=== PATIENT | male | born 1955 | race Caucasian/White ===

== ENCOUNTER 2020-09-14 18:37 | Inpatient (IN) ==
[2020-09-14 20:29] LABS: Basophils % 0.2 % (0.0-0.8); Eosinophils % 0.1 % (0.00-10.9); Hematocrit 46.2 VOL% (42.0-52.0); Hemoglobin 15.6 GM/DL (14.0-18.0); Immature Granulocytes % 0.4 %; Immature Granulocytes Absolute 0.06 #; Lymphocytes # 1.3 10*3/uL (1.4-4.0); Lymphocytes % 9.3 % (21.2-54.2); Mean Corpuscular HGB Conc 33.8 GM/DL (32-36); Mean Corpuscular Volume 101.3 FL (87-102); Mean Platelet Volume 9.2 FL (9.6-12.0); Monocytes % 7.1 % (1.7-12.7); Neutrophils % 82.9 % (38.7-73.9); Platelet Count 242 T/CUMM (130-400); Red Blood Count 4.56 MC/CUMM (3.8-5.5); Red Cell Distribution Width 12.4 % (9.3-17.3); White Blood Count 13.9 T/CUMM (4-12)
[2020-09-14 20:33] LABS: Bilirubin,Urine Negative (Negative); Blood, Urine Negative (Negative); Glucose,Urine (UA) Negative (Negative); Ketones,Urine 20 mg/dL (Negative); Mucus,Urine Few /LPF (Occasional); Nitrite,Urine Negative (Negative); Protein,Urine Negative; RBC,Urine 1 /HPF (0-4); Urine Appearance CLEAR (Clear); Urine Color Yellow (Yellow); Urine Specific Gravity 1.018 (1.001-1.035); Urine Urobilinogen < 2.0 EU/DL (0.2-1.0); WBC,Urine 3 /HPF (0-6)
[2020-09-14 20:55] LABS: Albumin 4.2 G/DL (3.4-5.0); Calcium 9.1 MG/DL (8.5-10.1); Osmolality,Calculated 269.1 MOS/KG (273-304); Total Protein 8.1 G/DL (6.4-8.3)
[2020-09-14] MEDS ORDERED: ONDANSETRON 4 MG/2 ML VIAL IV STA (21:22)
[2020-09-14] MEDS ORDERED: MORPHINE 4 MG/1 ML VIAL IV STA (21:23)
[2020-09-14] MEDS ORDERED: MORPHINE 4 MG/1 ML VIAL ONE (21:24)
[2020-09-14] MEDS ORDERED: HYDROmorphone 2 MG/1 ML VIAL IV STA (22:48)
[2020-09-14] MEDS ORDERED: ONDANSETRON 4 MG/2 ML VIAL IV PRN (23:13)
[2020-09-14] MEDS ORDERED: HYDROmorphone 2 MG/1 ML VIAL IV PRN (23:13)
[2020-09-14] MEDS ORDERED: ACETAMINOPHEN 325 MG TABLET PO PRN (23:13)
[2020-09-14 23:14] LABS: Risk Ratio 2.76; VLDL CHOLESTEROL 14.2 MG/DL
[2020-09-14] MEDS ORDERED: ALBUTEROL 2.5 MG/3 ML NEB RESP TX PRN (23:15)
[2020-09-14] MEDS ORDERED: LORazepam 2 MG/1 ML VIAL IV PRN (23:45)
[2020-09-15] MEDS: SODIUM CHLORIDE 0.9% 1,000 ML IV SCH ×3 (01:05→23:30)
[2020-09-15] MEDS: BUDESONIDE/FORMOTEROL 160-4.5 INHALER 6 GM INH SCH ×3 (01:14→21:12)
[2020-09-15] MEDS: ENOXAPARIN 40 MG/0.4 ML SYRINGE SUBCUT SCH ×2 (01:15→07:59)
[2020-09-15 06:25] LABS: Basophils % 0.3 % (0.0-0.8); Eosinophils # 0.1 10*3/uL (0.0-0.87); Eosinophils % 0.5 % (0.00-10.9); Hematocrit 40.8 VOL% (42.0-52.0); Hemoglobin 13.7 GM/DL (14.0-18.0); Immature Granulocytes % 0.5 %; Immature Granulocytes Absolute 0.05 #; Lymphocytes # 1.7 10*3/uL (1.4-4.0); Lymphocytes % 16.5 % (21.2-54.2); Mean Corpuscular HGB Conc 33.6 GM/DL (32-36); Mean Corpuscular Volume 100.7 FL (87-102); Mean Platelet Volume 9.8 FL (9.6-12.0); Neutrophils % 73.2 % (38.7-73.9); Platelet Count 228 T/CUMM (130-400); Red Blood Count 4.05 MC/CUMM (3.8-5.5); Red Cell Distribution Width 12.3 % (9.3-17.3); White Blood Count 10.1 T/CUMM (4-12)
[2020-09-15 06:44] LABS: Albumin 3.3 G/DL (3.4-5.0); Bilirubin,Total 1.4 MG/DL (0.2-1.0); Calcium 8.2 MG/DL (8.5-10.1); Osmolality,Calculated 280.1 MOS/KG (273-304); Total Protein 6.5 G/DL (6.4-8.3)
[2020-09-15] MEDS ORDERED: SENNA 8.6 MG TABLET PO PRN (08:13)
[2020-09-15] MEDS: ATORVASTATIN 40 MG TABLET PO SCH (08:29)
[2020-09-15] MEDS: PANTOPRAZOLE 40 MG VIAL IV SCH (08:30)
[2020-09-15] MEDS: ASPIRIN EC 325 MG TABLET PO SCH (08:30)
[2020-09-16] MEDS: SODIUM CHLORIDE 0.9% 1,000 ML IV SCH ×2 (00:50→08:55)
[2020-09-16 05:43] LABS: Basophils % 0.4 % (0.0-0.8); Eosinophils # 0.2 10*3/uL (0.0-0.87); Eosinophils % 2.1 % (0.00-10.9); Hemoglobin 13.2 GM/DL (14.0-18.0); Immature Granulocytes % 0.3 %; Immature Granulocytes Absolute 0.03 #; Lymphocytes # 1.6 10*3/uL (1.4-4.0); Lymphocytes % 16.5 % (21.2-54.2); Mean Corpuscular HGB Conc 33.8 GM/DL (32-36); Mean Platelet Volume 9.7 FL (9.6-12.0); Monocytes % 10.3 % (1.7-12.7); Neutrophils % 70.4 % (38.7-73.9); Platelet Count 183 T/CUMM (130-400); Red Cell Distribution Width 11.9 % (9.3-17.3); White Blood Count 9.5 T/CUMM (4-12)
[2020-09-16 06:05] LABS: Albumin 3.1 G/DL (3.4-5.0); Bilirubin,Total 1.2 MG/DL (0.2-1.0); Calcium 8.1 MG/DL (8.5-10.1); Osmolality,Calculated 271.7 MOS/KG (273-304); Osmolality,Calculated 275.4 MOS/KG (273-304); Total Protein 6.3 G/DL (6.4-8.3)
[2020-09-16 07:56] VITALS: BP 122/68
[2020-09-16] MEDS: ASPIRIN EC 325 MG TABLET PO SCH (08:42)
[2020-09-16] MEDS: ENOXAPARIN 40 MG/0.4 ML SYRINGE SUBCUT SCH (08:42)
[2020-09-16] MEDS: ATORVASTATIN 40 MG TABLET PO SCH (08:42)
[2020-09-16] MEDS: BUDESONIDE/FORMOTEROL 160-4.5 INHALER 6 GM INH SCH (08:45)
[2020-09-16] MEDS: PANTOPRAZOLE 40 MG VIAL IV SCH (08:46)
== END 2020-09-16 10:50 | disposition home or self-care (01) | DRG 440 ==
LOC: N.ED 18:37 → N.EDINP 22:37 → N.5E 23:57
PROVIDERS: ADMIT Internal Medicine; ATTEND Internal Medicine

== ENCOUNTER 2022-06-01 17:50 | Inpatient (IN) ==
[2022-06-01 18:18] LABS: Basophils # 0.1 10*3/uL (0.0-0.2); Basophils % 0.6 % (0.0-0.8); Eosinophils # 0.1 10*3/uL (0.0-0.87); Eosinophils % 1.8 % (0.00-10.9); Hemoglobin 15.2 GM/DL (14.0-18.0); Immature Granulocytes % 0.1 %; Immature Granulocytes Absolute 0.01 #; Lymphocytes # 1.5 10*3/uL (1.4-4.0); Lymphocytes % 18.8 % (21.2-54.2); Mean Corpuscular HGB Conc 34.5 GM/DL (32-36); Mean Corpuscular Volume 97.6 FL (87-102); Mean Platelet Volume 9.5 FL (9.6-12.0); Monocytes # 0.7 10*3/uL (0.11-0.8); Monocytes % 8.4 % (1.7-12.7); Neutrophils % 70.3 % (38.7-73.9); Platelet Count 243 T/CUMM (130-400); Red Blood Count 4.51 MC/CUMM (3.8-5.5); Red Cell Distribution Width 12.8 % (9.3-17.3)
[2022-06-01 18:52] LABS: Calcium 9.4 MG/DL (8.5-10.1); Potassium 3.5 MMOL/L (3.5-5.1); Total Protein 7.3 G/DL (6.4-8.2)
[2022-06-01] MEDS ORDERED: ONDANSETRON 4 MG/2 ML VIAL IV ONE (21:29)
[2022-06-01] MEDS ORDERED: SODIUM CHLORIDE 0.9% 1,000 ML IV STA (21:29)
[2022-06-01] MEDS ORDERED: MORPHINE 2 MG/1 ML SYRINGE IV STA (21:29)
[2022-06-01] MEDS ORDERED: ONDANSETRON 4 MG/2 ML VIAL IV PRN (22:09)
[2022-06-01] MEDS ORDERED: DEXTROSE 10% 250 ML BAG IV PRN (22:09)
[2022-06-01] MEDS ORDERED: diphenhydrAMINE CAP 25 MG CAPSULE PO PRN (22:09)
[2022-06-01] MEDS ORDERED: guaiFENesin/DM ER 600-30 MG TABLET PO PRN (22:09)
[2022-06-01] MEDS ORDERED: GLUCAGON 1 MG VIAL IM PRN (22:09)
[2022-06-01] MEDS ORDERED: NICOTINE 21 MG/24 HR PATCH TRANSDERM PRN (22:09)
[2022-06-01] MEDS ORDERED: hydrALAZINE 20 MG/1 ML VIAL IV PRN (22:09)
[2022-06-01] MEDS ORDERED: ZALEPLON 5 MG CAPSULE PO PRN (22:09)
[2022-06-01] MEDS ORDERED: DEXTROSE 5% NACL 0.9% 1,000 ML IV SCH (22:30)
[2022-06-01] MEDS ORDERED: ATORVASTATIN 40 MG TABLET PO SCH (23:06)
[2022-06-01] MEDS ORDERED: MORPHINE 2 MG/1 ML SYRINGE IV ONE (23:06)
[2022-06-02] MEDS: MORPHINE 2 MG/1 ML SYRINGE IV PRN ×2 (03:29→10:09)
[2022-06-02 06:28] LABS: Basophils % 0.4 % (0.0-0.8); Eosinophils # 0.2 10*3/uL (0.0-0.87); Eosinophils % 2.8 % (0.00-10.9); Hematocrit 44.4 VOL% (42.0-52.0); Hemoglobin 14.7 GM/DL (14.0-18.0); Immature Granulocytes % 0.5 %; Immature Granulocytes Absolute 0.04 #; Lymphocytes # 1.3 10*3/uL (1.4-4.0); Lymphocytes % 16.9 % (21.2-54.2); Mean Corpuscular HGB Conc 33.1 GM/DL (32-36); Mean Platelet Volume 9.8 FL (9.6-12.0); Monocytes # 0.8 10*3/uL (0.11-0.8); Monocytes % 10.1 % (1.7-12.7); Neutrophils % 69.3 % (38.7-73.9); Platelet Count 226 T/CUMM (130-400); Red Blood Count 4.44 MC/CUMM (3.8-5.5); Red Cell Distribution Width 12.9 % (9.3-17.3); White Blood Count 7.6 T/CUMM (4-12)
[2022-06-02 06:49] LABS: Calcium 8.8 MG/DL (8.5-10.1); Potassium 3.2 MMOL/L (3.5-5.1); Risk Ratio 2.75
[2022-06-02] MEDS ORDERED: THIAMINE 100 MG TABLET PO SCH (09:00)
[2022-06-02] MEDS ORDERED: PANTOPRAZOLE 40 MG TABLET PO SCH (09:00)
[2022-06-02] MEDS ORDERED: MULTIVITAMIN (CENTRUM) TABLET PO SCH (09:00)
[2022-06-02] MEDS ORDERED: HEPARIN 5,000 UNIT/1 ML VIAL SUBCUT SCH (09:00)
[2022-06-02] MEDS ORDERED: FOLIC ACID 1 MG TABLET PO SCH (09:00)
[2022-06-02] MEDS: POTASSIUM CHLORIDE RIDER 10 MEQ/100 ML PREMIX IV PRN ×4 (09:03→12:08)
[2022-06-02 11:46] VITALS: BP 117/72
== END 2022-06-02 15:17 | disposition home or self-care (01) | DRG 440 ==
LOC: N.ED 17:50 → N.EDINP 22:09 → N.3E 22:23
PROVIDERS: ADMIT Internal Medicine Geriatric Medicine; ATTEND Internal Medicine Geriatric Medicine